=== PATIENT | male | born 1940 | race Caucasian/White ===

== ENCOUNTER → 2016-11-28 | Outpatient (CLI) | payer MEDICARE, BC ==
[~2016-11-28] MED LIST: ASCORBIC ACID500 M3 PO; ASPIR 8181 M1 PO; ASPIRIN81 M2 PO; DILAUDID2 MG PO; FENOFIBRATE160 M1 PO; FLOMAX0.4 MG PO; HYDROCHLOROTH12.5 M3 PO; LO-DOSE ASPIRIN81 M1 PO; LORTAB 5-325 M1 EACH PO; LOSARTAN POTASS25 MG PO; LOSARTAN POTASS50 MG PO; METOPROLOL SUCC25 MG PO; METOPROLOL SUCC50 MG; METOPROLOL SUCC50 MG PO; MULTIVITAMINS1 EA11 PO; NAPROSYN-EC500 MG PO; NIASPAN,SLO-NI500 MG; NIASPAN,SLO-NI500 MG PO; OMEPRAZOLE20 MG; OMEPRAZOLE20 MG PO; PERCOCET 5/31 TABLET PO; PRAVASTATIN SOD20 MG PO; PRILOSEC20 MG PO; TAMSULOSIN HCL0.4 MG; TOPROL XL50 MG PO; TORADOL10 MG PO; VALIUM5 MG PO; VITAMIN C1000 MG PO; VITAMIN C500 M1 PO; VITAMIN E400 UNI6 PO; VITAMIN E400 UNIT PO; ZOFRAN ODT4 MG PO; ZOFRAN4 MG PO
== END | disposition home or self-care (01) ==
LOC: CDC 14:38
DX: Z01.810 Encounter for preprocedural cardiovascular examination (principal); Z95.0 Presence of cardiac pacemaker; R94.31 Abnormal electrocardiogram [ECG] [EKG]
CPT/HCPCS: 93000

== ENCOUNTER → 2017-02-15 | Outpatient (CLI) | payer OTHER, BC ==
[~2017-02-15] VITALS: Ht 182.9 cm; Wt 101.6 kg
[~2017-02-15] MED LIST changes: +MULTI-VITAMIN1 EAC4 PO; +TYLENOL EXTRA500 MG PO
== END | disposition home or self-care (01) ==
LOC: AMB 08:53
DX: Z12.11 Encounter for screening for malignant neoplasm of colon (principal); D12.2 Benign neoplasm of ascending colon; D12.3 Benign neoplasm of transverse colon; K64.8 Other hemorrhoids; Z86.010 Personal history of colon polyps; K57.30 Diverticulosis of large intestine without perforation or abscess without bleeding; Q27.33 Arteriovenous malformation of digestive system vessel; K59.09 Other constipation; I10 Essential (primary) hypertension; I65.22 Occlusion and stenosis of left carotid artery; E78.1 Pure hyperglyceridemia; K21.9 Gastro-esophageal reflux disease without esophagitis; I45.9 Conduction disorder, unspecified; Z95.0 Presence of cardiac pacemaker; Z96.653 Presence of artificial knee joint, bilateral; Z87.891 Personal history of nicotine dependence; K22.5 Diverticulum of esophagus, acquired; Z82.49 Family history of ischemic heart disease and other diseases of the circulatory system; Z83.3 Family history of diabetes mellitus; Z79.82 Long term (current) use of aspirin; Z88.8 Allergy status to other drugs, medicaments and biological substances
CPT/HCPCS: 88305

== ENCOUNTER 2017-05-25 22:59 | Observation (INO) | payer OTHER, BC ==
[~2017-05-25] VITALS: Ht 186.7 cm; Wt 104.2 kg
[2017-05-25 23:51] LABS: BASOPHIL (%) 0.4 % (0-1); BASOPHIL COUNT 0.1 K/uL (0-0.1); EOSINOPHIL (%) 0.2 % (0-5); HEMATOCRIT 45.3 % (38.0-50.0); HEMOGLOBIN 16.3 G/DL (12.5-16.6); IMMATURE GRANULOCYTE (%) 0.3 % (0.0-0.7); LYMPHOCYTE (%) 4.8 % (15-42); LYMPHOCYTE COUNT 0.7 K/uL (1.0-2.8); MCH 33.3 PG (29.0-34.0); MCV 92.6 FL (86-99); MONOCYTE (%) 3.6 % (3-12); MONOCYTE COUNT 0.5 K/uL (0-0.8); NEUTROPHIL (%) 90.7 % (45-76); NEUTROPHIL COUNT 12.2 K/uL (1.8-6.4); PLATELET COUNT 157 K/uL (156-360); RBC DIS.WIDTH-CV 12.8 % (11.8-14.6); RBC DIS.WIDTH-SD 43.4 % (39-53); RED BLOOD COUNT 4.89 M/uL (4.00-5.50); WHITE BLOOD COUNT 13.5 K/uL (4.1-10.2)
[2017-05-25 23:59] LABS: ALBUMIN 4.4 g/dL (3.2-4.8); CHLORIDE 103 mEq/L (99-109); POTASSIUM 4.5 mEq/L (3.7-5.4); SODIUM 139 mEq/L (136-147)
[2017-05-26 00:02] LABS: GLUCOSE 169 mg/dL (70-99); TOTAL PROTEIN 7.6 g/dL (6.4-8.3)
[2017-05-26 00:04] LABS: TOTAL BILIRUBIN 1.6 mg/dL (0.0-1.0)
[2017-05-26 00:05] LABS: ALKALINE PHOSPHATASE 71 IU/L (3-129); CREATININE 1.6 mg/dL (0.6-1.3); GFR ESTIMATE (CALCULATED) 45 mL/min/ (58.99-99999)
[2017-05-26 00:06] LABS: UREA NITROGEN (BUN) 29 mg/dL (9-23)
[2017-05-26 00:07] LABS: AST (GOT) 25 IU/L (2-34)
[2017-05-26 00:08] LABS: ALT (GPT) 23 IU/L (3-49)
[2017-05-26 00:09] LABS: LIPASE 23 U/L (1.0-51.0)
[2017-05-26 00:11] LABS: TROP-I INTERPRETATION NEGATIVE; TROPONIN-I < 0.01 ng/mL (0.0-0.30)
[2017-05-26 02:42] LABS: APPEARANCE SL.HAZY ((CLEAR)); BILIRUBIN NEGATIVE; BLOOD NEGATIVE; COLOR AMBER ((YELLOW)); GLUCOSE (STRIP) NEGATIVE; KETONES NEGATIVE; LEUKOCYTES NEGATIVE; NITRITE NEGATIVE; PROTEIN (STRIP) 30; SPECIFIC GRAVITY 1.026 (1.000-1.030); UROBILINOGEN 0.2 MG/DL (0.2-1.0)
[2017-05-26 02:45] LABS: BACTERIA NONE SEEN /HPF; EPITHELIAL CELLS RARE /HPF; HYALINE CASTS 30-40 /LPF; MUCUS 2+ /LPF; UCUL ADDED? NO; WHITE BLOOD CELLS 0-5 /HPF (0-5)
[2017-05-26 05:30] VITALS: BP 128/62
[2017-05-26 05:54] LABS: C DIFF TOXIN NEGATIVE (NEGATIVE)
[2017-05-26 08:35] VITALS: BP 120/73
[2017-05-26 12:01] VITALS: BP 117/73
[2017-05-26] MEDS ORDERED: MIRALAX17 GM PO (12:12)
[2017-05-26 16:45] VITALS: BP 137/73
[2017-05-26 19:27] VITALS: BP 121/59
[2017-05-26 23:18] VITALS: BP 132/79
[2017-05-27 03:43] VITALS: BP 120/64
[2017-05-27 07:13] VITALS: BP 135/73
[2017-05-27 07:24] LABS: CHLORIDE 106 MEQ/L (99-109); POTASSIUM 3.7 MEQ/L (3.7-5.4); SODIUM 140 MEQ/L (136-147); UREA NITROGEN (BUN) 18 mg/dL (9-23)
[2017-05-27 07:27] LABS: BASOPHIL (%) 0.4 % (0-1); EOSINOPHIL (%) 2.8 % (0-5); EOSINOPHIL COUNT 0.1 K/uL (0-0.3); HEMATOCRIT 38.6 % (38.0-50.0); IMMATURE GRANULOCYTE (%) 0.2 % (0.0-0.7); LYMPHOCYTE (%) 24.2 % (15-42); LYMPHOCYTE COUNT 1.1 K/uL (1.0-2.8); MCH 31.9 PG (29.0-34.0); MCHC 33.7 G/DL (30.0-36.0); MCV 94.8 FL (86-99); MONOCYTE (%) 14.6 % (3-12); MONOCYTE COUNT 0.7 K/uL (0-0.8); NEUTROPHIL (%) 57.8 % (45-76); NEUTROPHIL COUNT 2.7 K/uL (1.8-6.4); PLATELET COUNT 114 K/uL (156-360); RBC DIS.WIDTH-SD 45.4 % (39-53); RED BLOOD COUNT 4.07 M/uL (4.00-5.50); WHITE BLOOD COUNT 4.7 K/uL (4.1-10.2)
[2017-05-27 07:32] LABS: CREATININE 1.1 MG/DL (0.6-1.3); GFR ESTIMATE (CALCULATED) > 59 mL/min/ (58.99-99999); GLUCOSE 107 mg/dL (70-99)
[2017-05-27 11:57] VITALS: BP 134/85
== END 2017-05-27 15:13 | disposition home or self-care (01) ==
LOC: EME → EDBD 22:59 → 5WEST 05-26 04:12 → EDOF 05-26 04:12 → ENRESERV 05-26 04:19 → 5WEST 05-26 05:22
PROVIDERS: Emergency Medicine; Internal Medicine; Physician Assistant Medical
DX: A08.4 Viral intestinal infection, unspecified (principal); N17.9 Acute kidney failure, unspecified; E87.2 Acidosis; K21.9 Gastro-esophageal reflux disease without esophagitis; I44.1 Atrioventricular block, second degree; I49.5 Sick sinus syndrome; Z95.0 Presence of cardiac pacemaker; M19.90 Unspecified osteoarthritis, unspecified site; E78.5 Hyperlipidemia, unspecified; I10 Essential (primary) hypertension; K55.20 Angiodysplasia of colon without hemorrhage; Z86.73 Personal history of transient ischemic attack (TIA), and cerebral infarction without residual deficits; Z85.820 Personal history of malignant melanoma of skin; N40.0 Benign prostatic hyperplasia without lower urinary tract symptoms; Z79.82 Long term (current) use of aspirin; Z87.891 Personal history of nicotine dependence; Z82.49 Family history of ischemic heart disease and other diseases of the circulatory system; Z96.653 Presence of artificial knee joint, bilateral; Z87.442 Personal history of urinary calculi
CPT/HCPCS: 74176; 80048; 80053; 81003; 83690; 84484; 85025; 87493; 93005; 99281; 99285; G0378; J0780; J1644; J2405; J2765; J7030; J7120; S0028

== ENCOUNTER 2017-06-01 10:05 | Emergency (ER) | payer OTHER, BC ==
[~2017-06-01] VITALS: Ht 186.7 cm; Wt 101.2 kg
[~2017-06-01 10:05] MED LIST changes: +MIRALAX17 GM PO
[2017-06-01 10:51] LABS: BASOPHIL (%) 0.3 % (0-1); EOSINOPHIL (%) 2.5 % (0-5); EOSINOPHIL COUNT 0.2 K/uL (0-0.3); HEMATOCRIT 38.7 % (38.0-50.0); HEMOGLOBIN 13.8 G/DL (12.5-16.6); IMMATURE GRANULOCYTE (%) 0.3 % (0.0-0.7); LYMPHOCYTE (%) 17.6 % (15-42); LYMPHOCYTE COUNT 1.5 K/uL (1.0-2.8); MCH 33.1 PG (29.0-34.0); MCHC 35.7 G/DL (30.0-36.0); MCV 92.8 FL (86-99); MONOCYTE (%) 9.4 % (3-12); MONOCYTE COUNT 0.8 K/uL (0-0.8); NEUTROPHIL (%) 69.9 % (45-76); NEUTROPHIL COUNT 6.1 K/uL (1.8-6.4); RBC DIS.WIDTH-CV 12.7 % (11.8-14.6); RBC DIS.WIDTH-SD 42.6 % (39-53); RED BLOOD COUNT 4.17 M/uL (4.00-5.50); WHITE BLOOD COUNT 8.7 K/uL (4.1-10.2)
[2017-06-01 10:52] LABS: PLATELET COUNT 164 K/uL (156-360)
[2017-06-01 11:01] LABS: CHLORIDE 104 mEq/L (99-109)
[2017-06-01 11:02] LABS: POTASSIUM 3.6 mEq/L (3.7-5.4); SODIUM 139 mEq/L (136-147)
[2017-06-01 11:03] LABS: GLUCOSE 132 mg/dL (70-99)
[2017-06-01 11:07] LABS: GFR ESTIMATE (CALCULATED) > 59 mL/min/ (58.99-99999)
[2017-06-01 11:08] LABS: UREA NITROGEN (BUN) 17 mg/dL (9-23)
[2017-06-01 13:50] VITALS: BP 139/74
[2017-06-01] MEDS ORDERED: FIORICET,ESG1 TABLET PO (13:53)
== END 2017-06-01 14:19 | disposition home or self-care (01) ==
LOC: EME 10:05
PROVIDERS: Emergency Medicine
DX: R51 Headache (principal); E78.5 Hyperlipidemia, unspecified; I10 Essential (primary) hypertension; Z96.653 Presence of artificial knee joint, bilateral; Z87.891 Personal history of nicotine dependence; Z88.8 Allergy status to other drugs, medicaments and biological substances
CPT/HCPCS: 70450; 80048; 85025; 99281; 99284

== ENCOUNTER 2017-07-28 13:07 | Emergency (ER) | payer OTHER, BC ==
[~2017-07-28] VITALS: Ht 185.4 cm; Wt 103.4 kg
[~2017-07-28 13:07] MED LIST changes: +FIORICET,ESG1 TABLET PO
[2017-07-28 14:25] LABS: HEMATOCRIT 41.4 % (38.0-50.0); HEMOGLOBIN 14.7 G/DL (12.5-16.6); MCH 33.2 PG (29.0-34.0); MCHC 35.5 G/DL (30.0-36.0); MCV 93.5 FL (86-99); PLATELET COUNT 166 K/uL (156-360); RBC DIS.WIDTH-CV 12.6 % (11.8-14.6); RBC DIS.WIDTH-SD 43.7 % (39-53); RED BLOOD COUNT 4.43 M/uL (4.00-5.50); WHITE BLOOD COUNT 9.5 K/uL (4.1-10.2)
[2017-07-28 14:31] LABS: ALBUMIN 4.2 g/dL (3.2-4.8); CHLORIDE 100 mEq/L (99-109); SODIUM 135 mEq/L (136-147)
[2017-07-28 14:33] LABS: GLUCOSE 155 mg/dL (70-99)
[2017-07-28 14:34] LABS: TOTAL PROTEIN 7.5 g/dL (6.4-8.3)
[2017-07-28 14:35] LABS: TOTAL BILIRUBIN 1.2 mg/dL (0.0-1.0)
[2017-07-28 14:37] LABS: ALKALINE PHOSPHATASE 62 IU/L (3-129); CREATININE 1.2 mg/dL (0.6-1.3); GFR ESTIMATE (CALCULATED) > 59 mL/min/ (58.99-99999)
[2017-07-28 14:38] LABS: UREA NITROGEN (BUN) 18 mg/dL (9-23)
[2017-07-28 14:39] LABS: AST (GOT) 19 IU/L (2-34)
[2017-07-28 14:40] LABS: ALT (GPT) 17 IU/L (3-49); LIPASE 26 U/L (1.0-51.0)
[2017-07-28 17:54] VITALS: BP 119/89
== END 2017-07-28 17:58 | disposition home or self-care (01) ==
LOC: EME 13:07
PROVIDERS: Emergency Medicine
DX: R10.30 Lower abdominal pain, unspecified (principal); I10 Essential (primary) hypertension; E78.5 Hyperlipidemia, unspecified; K57.30 Diverticulosis of large intestine without perforation or abscess without bleeding; K76.0 Fatty (change of) liver, not elsewhere classified; Z79.82 Long term (current) use of aspirin; Z87.442 Personal history of urinary calculi; Z87.891 Personal history of nicotine dependence; Z95.0 Presence of cardiac pacemaker
CPT/HCPCS: 74177; 80053; 81003; 83690; 85027; 93005; 99281; 99285